=== PATIENT | female | born 1995 | race Caucasian/White ===

== ENCOUNTER 2022-09-14 20:20 | Emergency (ER) | payer SELFPAY ==
[~2022-09-14] VITALS: Ht 147.3 cm; Wt 70.0 kg
[2022-09-14 20:57] VITALS: BP 106/80; PULSE 76; RESP 18; TEMP 98.1; O2SAT 97
== END 2022-09-15 00:51 | disposition left against medical advice (07) ==
LOC: ER 20:20
DX: Z53.21 Procedure and treatment not carried out due to patient leaving prior to being seen by health care provider (principal)
CPT/HCPCS: 99281